=== PATIENT | female | born 1980 | race Caucasian/White ===

== ENCOUNTER 2016-12-04 06:14 | Emergency (ER) | payer OTHER ==
[~2016-12-04] VITALS: Ht 170.2 cm; Wt 77.4 kg
[2016-12-04 06:17] VITALS: TEMP 36.7; Ht 170.2 cm; Wt 77.4 kg
[2016-12-04] MEDS ORDERED: SODIUM CHLORIDE 0.9% 1000ML 1,000 ML IV STA (06:35)
[2016-12-04 06:52] LABS: BASO % 0.2 %; BASO ABS # 0.03 K/uL (0-0.2); COMPLETE YES; EOS % 1.8 %; HEMATOCRIT 41.1 % (37-47); IG% 0.3 %; LYMPH % 14.7 %; LYMPH ABS # 1.93 K/uL (1.2-3.4); MEAN CELL VOLUME 94.7 fL (80-100); MEAN CORPUSCULAR HEMOGLOBIN 32.3 pg (25-34); MEAN CORPUSCULAR HGB CONC 34.1 g/dl (32-36); MEAN PLATELET VOLUME 10.2 fL (7.4-10.4); MONO % 5.6 %; NEUT % 77.4 %; PLATELET COUNT 281 K/uL (130-400); RED BLOOD COUNT 4.34 M/uL (4.2-5.4)
[2016-12-04] MEDS ORDERED: LEVO75TA5 PO (06:53)
[2016-12-04] MEDS ORDERED: LEVO125T5 PO (06:57)
[2016-12-04] MEDS ORDERED: CYTM5 PO (07:00)
[2016-12-04 07:01] LABS: URINE APPEARANCE CLEAR (CLEAR); URINE BILIRUBIN NEG (NEG); URINE COLOR YELLOW; URINE NITRITE NEG (NEG); URINE SPECIFIC GRAVITY 1.019 (1.000-1.030); UROBILINOGEN NEG (NEG)
[2016-12-04] MEDS ORDERED: MAGN250T22 PO (07:01)
[2016-12-04 07:02] LABS: MANUAL MICROSCOPIC REQUIRED? NO; REVIEW REQ? NO
[2016-12-04] MEDS ORDERED: ZINC1TAB4 PO (07:02)
[2016-12-04] MEDS ORDERED: [UNRECOGNIZED DRUG - CODE] PO (07:03)
[2016-12-04] MEDS ORDERED: CHOL2000 PO (07:04)
[2016-12-04] MEDS ORDERED: B-CO1TAB29 PO (07:06)
[2016-12-04] MEDS ORDERED: HYDR1POW PO (07:08)
[2016-12-04 07:13] VITALS: O2SAT 96
[2016-12-04 07:17] LABS: ALB/GLOB RATIO 1.1 (0.9-2); BUN/CREATININE RATIO 13.8 (10-20); CALCIUM 9.2 mg/dl (8.5-10.1); CREATININE 0.65 mg/dl (0.60-1.20); POTASSIUM 3.8 mmol/L (3.5-5.1)
--- NOTE | 2016-12-04 07:54 | DIAGNOSTIC IMAGING REPORT ---
ULTRASOUND OF THE PELVIS CLINICAL HISTORY: Vaginal bleeding. Positive test. COMPARISON STUDY: No priors. TECHNIQUE: Real-time, grayscale, and color flow sonography of the pelvis is performed both transabdominally and endovaginally. Images are reviewed in the transverse and longitudinal planes. FINDINGS: Uterus: The retroverted uterus is mildly enlarged, measuring 10.2 x 5.1 x 6.6 cm. The cervix appears thickened and heterogeneous. There is complex fluid/material filling the endocervical canal. Endometrium: The endometrium is thickened and heterogeneous, measuring up to 1.7 cm. Mild internal flow suggestive color imaging Ovaries: The ovaries were not visualized. Pelvis: There is a small volume of free fluid in the cul-de-sac. No concerning adnexal lesion is seen. IMPRESSION: 1. There is complex material seen filling the endocervical canal. The cervix appears thickened and heterogeneous, and this likely represents an in progress. Gynecology follow-up is recommended. 2. The endometrial stripe appears thickened and heterogeneous measuring up to 1.7 cm. No intrauterine gestation is identified. As noted above, this likely represents an in progress. Although there is no concerning adnexal lesion identified, in the setting of a positive test without a confirmed intrauterine gestation ectopic would be impossible to exclude. Close clinical, laboratory, and sonographic follow-up is recommended. 3. The ovaries were not visualized. 4. Nonspecific free fluid is present in the cul-de-sac. Electronically signed by: Vince Ledezma M.D. 12/04/2016 7:53 AM Dictated Date/Time: 12/04/2016 7:45 AM
[2016-12-04 08:06] LABS: INR 1.1 (0.9-1.1); PROTHROMBIN TIME (PATIENT) 11.4 SECONDS (9.0-12.0)
[2016-12-04] MEDS ORDERED: ONDANSETRON 8 MG/54 ML D5W IV STA (08:06)
[2016-12-04] MEDS ORDERED: KETOROLAC TROMETHAMINE 30 MG/ML VIAL IV STA (08:06)
[2016-12-04] MEDS: HYDROmorphone INJ 1 MG/ML SYR IV PRN ×4 (08:11→10:11)
--- NOTE | 2016-12-04 10:50 | Progress Note ---
Progress Note Date of Service December 04, 2016. Progress Note Called to evaluate the patient for heavy bleeding and suspected miscarriage in progress. Per patient she was told she unable to get due to cervical scar tissue but has not had a period since September which isn't uncommon for her. She began having bleeding on Wednesday of this week and continued to have increasing pain and bleeding until she came in today for evaluation. HCG level was elevated at >6000. Ultrasound confirmed possible miscarriage in progress with no adnexal mass seen and a thickened heterogenous endometrial lining. On speculum exam the cervical os was not at first clearly visualized due to the amount of blood within the vaginal vault. The clots were removed and the cervix was clearly visualized. There was tissue at the cervical opening which was grasped with ring forceps and removed without difficulty. More tissue was then noted to come out consistent with products of conception. All tissue specimens were sent to pathology. Once all the tissue was cleared form the cervix excellent hemostasis was noted and no active bleeding seen. The patient tolerated well. She was instructed to watch for any further heavy bleeding, fevers, chills or pain. She is to follow up within the next week at our office. Call with any concerns. Patient agreeable and all questions answered.
[2016-12-04 11:16] VITALS: BP 105/62; PULSE 60; O2SAT 96
--- NOTE | 2016-12-04 14:06 | EMERGENCY ROOM VISIT NOTE ---
History Report prepared by Jeferson: Jenae Zhang Under the Supervision of: Dr. Srinivasan Radford M.D. First contact with patient: 06:32 Chief Complaint: ED VAG BLEEDING Stated Complaint: LOTS OF BLEEDING AND ABD PAIN History of Present Illness The patient is a 36 year old female who presents to the Emergency Room with complaints of worsening vaginal bleeding for the past 5 days. Her bleeding started as "spotting" earlier this week and she states she thought it was her menstrual period. Her period is normally irregular and her last menstrual period was approximately 3 months ago. This morning around 0100, she developed cramping abdominal pain in her lower to mid-abdomen and "bright red vaginal bleeding with clots". She reports she did experience cramps yesterday, but they have worsened significantly today. She has taken Ibuprofen and Pepto Bismol for her pain and nausea. She rates her current abdominal pain as a 6/10 to a 9/10. Her primary care provider is Dr. Warner at [facility] and she also follows with Nathalie Garcias CHAIR MECHANIC. Her last annual [employer] visit was over 1 year ago. Pt denies LOC, headache, fevers, chills, diaphoresis, visual changes, neck pain , chest pain, breathing difficulties, vomiting, back pain, melena, hematochezia , urinary symptoms, numbness, weakness, lymphadenopathy, rash, or other complaints. 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 A total of ten systems were reviewed and were otherwise negative. Past Medical & Surgical Medical Problems: (1) Hypothyroidism Social History Smoking Status: Never Smoker Alcohol Use: occasionally Drug Use: none Marital Status: single Housing Status: lives with family Occupation Status: employed Current/Historical Medications Scheduled B-Complex Vitamins (Vitamin B-Complex), 1 TAB PO DAILY Cholecalciferol (Vitamin D3), 2,000 UNITS PO DAILY Hydroxytryptophan (5-Htp), 2 TBS PO DAILY Levothyroxine Sodium (Levothyroxine Sodium), 75 MCG PO 4XWK Levothyroxine Sodium (Levothyroxine Sodium), 62.5 MCG PO 3XWK Liothyronine Sodium (Liothyronine Sodium), 5 MCG PO BID Magnesium Oxide (Magnesium), 250 MG PO DAILY Selenium (Se-100), 100 MCG PO DAILY Zinc Gluconate (Zinc), 100 MG PO DAILY Allergies Coded Allergies: Dairy (Verified Adverse Reaction, Intermediate, GI UPSET, 12/04/16) Gluten (Verified Adverse Reaction, Intermediate, GI UPSET, 12/04/16) Physical Exam Vital Signs Date Time Temp Pulse Resp B/P Pulse Ox O2 Delivery O2 Flow Rate FiO2 12/04/16 11:16 60 16 105/62 96 12/04/16 10:15 60 16 105/62 96 Room Air 12/04/16 09:15 84 16 103/55 97 Room Air 12/04/16 08:19 66 12/04/16 07:49 58 18 112/70 99 Room Air 12/04/16 07:13 96 Room Air 12/04/16 06:17 36.7 82 20 118/80 100 Room Air Physical Exam GENERAL: Awake, alert, well-appearing, in no distress HENT: Normocephalic, atraumatic. Oropharynx unremarkable. EYES: Normal conjunctiva. Sclera non-icteric. NECK: Supple. No nuchal rigidity. FROM. No JVD. RESPIRATORY: Clear to auscultation. CARDIAC: Regular rate, normal rhythm. Extremities warm and well perfused. Pulses equal. ABDOMEN: Soft, non-distended. Suprapubic abdominal discomfort. No rebound or guarding. No masses. PELVIC: Pelvic exam chaperoned by female nurse. Normal external female anatomy. Dark blood in the vaginal vault. No active hemorrhage. MUSCULOSKELETAL: Chest examination reveals no tenderness. The back is symmetrical on inspection without obvious abnormality. There is no CVA tenderness to palpation. No joint edema. LOWER EXTREMITIES: Calves are equal size bilaterally and non-tender. No edema. No discoloration. NEURO: Normal sensorium. No sensory or motor deficits noted. SKIN: No rash or jaundice noted. Medical Decision & Procedures ER Provider Diagnostic Interpretation: US: Radiology results as stated below per my review and radiologist interpretation ULTRASOUND OF THE PELVIS CLINICAL HISTORY: Vaginal bleeding. Positive test. COMPARISON STUDY: No priors. TECHNIQUE: Real-time, grayscale, and color flow sonography of the pelvis is performed both transabdominally and endovaginally. Images are reviewed in the transverse and longitudinal planes. FINDINGS: Uterus: The retroverted uterus is mildly enlarged, measuring 10.2 x 5.1 x 6.6 cm. The cervix appears thickened and heterogeneous. There is complex fluid/material filling the endocervical canal. Endometrium: The endometrium is thickened and heterogeneous, measuring up to 1.7 cm. Mild internal flow suggestive color imaging Ovaries: The ovaries were not visualized. Pelvis: There is a small volume of free fluid in the cul-de-sac. No concerning adnexal lesion is seen. IMPRESSION: 1. There is complex material seen filling the endocervical canal. The cervix appears thickened and heterogeneous, and this likely represents an in progress. Gynecology follow-up is recommended. 2. The endometrial stripe appears thickened and heterogeneous measuring up to 1.7 cm. No intrauterine gestation is identified. As noted above, this likely represents an in progress. Although there is no concerning adnexal lesion identified, in the setting of a positive test without a confirmed intrauterine gestation ectopic would be impossible to exclude. Close clinical, laboratory, and sonographic follow-up is recommended. 3. The ovaries were not visualized. 4. Nonspecific free fluid is present in the cul-de-sac. Electronically signed by: Vince Ledezma M.D. 12/04/2016 7:53 AM Laboratory Results 12/04/16 06:41 Red Blood Count 4.34, Mean Corpuscular Volume 94.7, Mean Corpuscular Hemoglobin 32.3, Mean Corpuscular Hemoglobin Concent 34.1, Mean Platelet Volume 10.2, Neutrophils (%) (Auto) 77.4, Lymphocytes (%) (Auto) 14.7, Monocytes (%) (Auto) 5.6, Eosinophils (%) (Auto) 1.8, Basophils (%) (Auto) 0.2, Neutrophils # (Auto) 10.12, Lymphocytes # (Auto) 1.93, Monocytes # (Auto) 0.74, Eosinophils # (Auto) 0.24, Basophils # (Auto) 0.03 12/04/16 06:41 Test 12/04/16 06:30 12/04/16 06:41 12/04/16 07:02 12/04/16 07:50 Urine Color YELLOW Urine Appearance CLEAR (CLEAR) Urine pH 8.0 (4.5-7.5) Urine Specific [place] 1.019 (1.000-1.030) Urine Protein NEG (NEG) Urine Glucose (UA) NEG (NEG) Urine Ketones 2+ (NEG) Urine Occult Blood NEG (NEG) Urine Nitrite NEG (NEG) Urine Bilirubin NEG (NEG) Urine Urobilinogen NEG (NEG) Urine Leukocyte Esterase NEG (NEG) Urine Test POS (NEG) White Blood Count 13.10 K/uL (4.8-10.8) Red Blood Count 4.34 M/uL (4.2-5.4) Hemoglobin 14.0 g/dL (12.0-16.0) Hematocrit 41.1 % (37-47) Mean Corpuscular Volume 94.7 fL (80-100) Mean Corpuscular Hemoglobin 32.3 pg (25-34) Mean Corpuscular Hemoglobin Concent 34.1 g/dl (32-36) Platelet Count 281 K/uL (130-400) Mean Platelet Volume 10.2 fL (7.4-10.4) Neutrophils (%) (Auto) 77.4 % Lymphocytes (%) (Auto) 14.7 % Monocytes (%) (Auto) 5.6 % Eosinophils (%) (Auto) 1.8 % Basophils (%) (Auto) 0.2 % Neutrophils # (Auto) 10.12 K/uL (1.4-6.5) Lymphocytes # (Auto) 1.93 K/uL (1.2-3.4) Monocytes # (Auto) 0.74 K/uL (0.11-0.59) Eosinophils # (Auto) 0.24 K/uL (0-0.5) Basophils # (Auto) 0.03 K/uL (0-0.2) RDW Standard Deviation 43.6 fL (36.4-46.3) RDW Coefficient of Variation 12.5 % (11.5-14.5) Immature Granulocyte % (Auto) 0.3 % Immature Granulocyte # (Auto) 0.04 K/uL (0.00-0.02) Anion Gap 10.0 mmol/L (3-11) Est Creatinine Clear Calc Drug Dose 129.5 ml/min Estimated GFR () 133.3 Estimated GFR (Non- 115.0 BUN/Creatinine Ratio 13.8 (10-20) Calcium Level 9.2 mg/dl (8.5-10.1) Total Bilirubin 0.5 mg/dl (0.2-1) Aspartate Amino Transf (AST/SGOT) 13 U/L (15-37) Alanine Aminotransferase (ALT/SGPT) 25 U/L (12-78) Alkaline Phosphatase 53 U/L (45-117) Total Protein 7.3 gm/dl (6.4-8.2) Albumin 3.9 gm/dl (3.4-5.0) Globulin 3.4 gm/dl (2.5-4.0) Albumin/Globulin Ratio 1.1 (0.9-2) Human Chorionic Gonadotropin, Quant 6402 mIU/mL Chemistry Specimen Hemolysis Prothrombin Time 11.4 SECONDS (9.0-12.0) Prothromb Time International Ratio 1.1 (0.9-1.1) Activated Partial Thromboplast Time 27.1 SECONDS (21.0-31.0) Partial Thromboplastin Ratio 1.0 Laboratory results reviewed by me Medications Administered Medications (Trade) Dose Ordered Sig/Jessica Route Start Time Stop Time Status Last Admin Dose Admin Sodium Chloride (Nss 1000ml) 1,000 ml @ 999 mls/hr Q1H1M STAT IV 12/04/16 06:35 12/04/16 07:35 DC 12/04/16 06:44 999 MLS/HR Ketorolac Tromethamine (Toradol Inj) 10 mg NOW STAT IV 12/04/16 08:06 12/04/16 08:07 DC 12/04/16 08:11 10 MG Hydromorphone HCl (Dilaudid Inj) 1 mg Q15M PRN IV 12/04/16 08:15 12/04/16 11:35 DC 12/04/16 10:11 1 MG Ondansetron HCl (Zofran 8mg Iv) 8 mg NOW STAT IV 12/04/16 08:06 12/04/16 08:07 DC 12/04/16 08:12 8 MG ED Course 0635: NSS 1000 ml @ 999 mls/hr IV. 0648: The patient was evaluated in room B11B. A complete history and physical exam was performed. 0700: Limited bedside ultrasound revealed no significant free intraabdominal fluids on FAST exam. There was fluid and material noted within the uterus. Offered patient analgesia and initially she declined. 0800: Nursing informed me the patient would like medication for pain. I will place orders. 0806: Zofran 8 mg IV, Toradol 10 mg IV. 0810: I discussed the patients case with Alvin Saldivar CHAIR MECHANIC. He recommends outpatient follow up. 0815: Dilaudid 1 mg IV. 0815: I reevaluated the patient. She is feeling a little better after receiving pain medication. She did pass a moderate amount of clots when she went to the bathroom earlier. 1000: Nursing informed me the patient is still complaining of increased pain. I will contact CHAIR MECHANIC again. 1011: I discussed the patients case with Alvin Saldivar CHAIR MECHANIC again. The patient will be further evaluated. 1020: I informed the patient that Dr. Miller with [facility] will be coming down to evaluate her due to her complaints of increased pain. 1050: I discussed the patients case with Alvin Saldivar CHAIR MECHANIC again. He removed tissue from the patients vagina. Her bleeding is controlled and he recommends she be discharge dhome. 1110: I reevaluated the patient. She is feeling better. I discussed her results and discharge instructions and she verbalized complete understanding and agreement. Medical Decision Prior records/ancillary studies reviewed. Triage Nursing notes reviewed and agree them. Additional history obtained from the family. The patient's history was concerning for vaginal bleeding and abdominal pain. Differential diagnosis: Etiologies such as TAB, ectopic , dysfunction uterine bleeding, bleeding dyscrasia, trauma, infection, as well as others were entertained. Physical examination: As above. The patient was uncomfortable. No active hemorrhage. Tenderness suprapubic region without peritoneal findings. ER treatment provided: Patient initially declined analgesia Normal saline hydration The patient then returned from ultrasound and requested analgesia. The patient was given Toradol, Dilaudid, and Zofran. The patient required multiple doses of IV Dilaudid. Consultation with CHAIR MECHANIC for evaluation. Significant tissue and clot removed from the cervical os. On reassessment the patient felt better. Diagnostic interpretation by me: The labs revealed the patient to the Rh positive. CBC, coagulation studies, and chemistries were unremarkable. Quantitative hCG was 6400 Imaging studies: Ultrasound as above Consultation: A consultation was placed with the binder operator physician, Dr. Miller. The case was discussed and diagnostics were reviewed. Initial plan was for her to have office follow-up however the patient began to have more cramping and pain. He evaluated her in the Emergency Room. That point he noted moderate tissue protruding from the os and removed this. It appears the patient has likely completed a miscarriage. By the evaluation outlined above emergent etiologies such as bleeding dyscrasia , ectopic , trauma, as well as others were deemed relatively unlikely. The patient and significant other were informed about the findings as listed above. All questions were answered and they were pleased with the treatment. Return instructions were outlined and the patient was discharged in stable condition. Referral: The patient was referred to CHAIR MECHANIC for follow-up for a recheck of her current condition. The chart was completed utilizing [employer] Speech voice recognition software. Grammatical errors, random word insertions, pronoun errors, and incomplete sentences are an occasional consequence of this system due to software limitations, ambient noise, and hardware issues. Any formal questions or concerns about the content, text, or information contained within the body of this dictation should be directly addressed to the physician for clarification. Consults Time Called: 808 Consulting Physician: Alvin Saldivar CHAIR MECHANIC Returned Call: 809 I discussed the patients case with Alvin Saldivar CHAIR MECHANIC. He recommends outpatient follow up. Impression Primary Impression: Complete Additional Impression: Vaginal bleeding Scribe Attestation The scribe's documentation has been prepared under my direction and personally reviewed by me in its entirety. I confirm that the note above accurately reflects all work, treatment, procedures, and medical decision making performed by me. Departure Information Dispostion Home / Self-Care Referrals No Doctor, Assigned (PCP) Patient Instructions My [facility] Additional Instructions Return to the emergency department for passing out, abdominal pain, bleeding more than 3 pads an hour for 3 consecutive hours, or as needed. Ibuprofen(Motrin, Advil) may be used for fever or pain. Use 600mg every six hours as needed. Take with food. Avoid using more than 2400mg in a 24 hour period. Do not use 2400mg per day for more than three consecutive days without physician direction. Prolonged inappropriate use can lead to stomach upset or ulcers. And/or Tylenol: Take 1000 mg every 6 hours as needed for pain. Do not take more than 3000 mg in a 24 hour period. No tampon use, intercourse, physical exertion, or strenuous activity. Rest and drink plenty of fluids. Follow-up with Alvin CHAIR MECHANIC as discussed. Call the office today. Problem Qualifiers
[2016-12-08 04:24] LABS: CHLAMYDIA TRACH RNA*** NOT DETECTED (NOT DETECTED); GC (NEIS GONORRHOEAE)RNA** NOT DETECTED (NOT DETECTED)
== END 2016-12-04 11:16 | disposition home or self-care (01) ==
LOC: C.EDB 06:15
DX: O03.9 Complete or unspecified spontaneous abortion without complication (principal); N93.9 Abnormal uterine and vaginal bleeding, unspecified; E03.9 Hypothyroidism, unspecified; Z79.899 Other long term (current) drug therapy